=== PATIENT | male | born 1985 | race American Indian/Alaskan Native ===

== ENCOUNTER 2020-09-27 08:28 | Emergency (ER) | payer SELFPAY ==
[2020-09-27 08:47] VITALS: BP 131/81
--- NOTE | 2020-09-27 09:42 | Emergency Department Report ---
Suture/Staple Removal - HPI Chief Complaint: Laceration/Recheck/Suture Stated Complaint: LFT ARM STITCHS REMOVAL Time Seen by Provider: 09/27/20 09:35 When Sutures or [place] Placed: 8-10 Days Ago Wound Location: Left forearm ED Review of Systems ROS: Stated complaint: LFT ARM STITCHS REMOVAL Other details as noted in HPI Comment: All other systems reviewed and negative Constitutional: denies: chills, fever Eyes: denies: eye pain, eye discharge, vision change ENT: denies: ear pain, throat pain Respiratory: denies: cough, shortness of breath, wheezing Cardiovascular: denies: chest pain, palpitations Endocrine: no symptoms reported Gastrointestinal: denies: abdominal pain, nausea, diarrhea Genitourinary: denies: urgency, dysuria Musculoskeletal: denies: back pain, joint swelling, arthralgia Skin: as per HPI. denies: rash, lesions Neurological: denies: headache, weakness, paresthesias Psychiatric: denies: anxiety, depression Hematological/Lymphatic: denies: easy bleeding, easy bruising ED Past Medical Hx - Past Medical History Previous Medical History?: No - Surgical History Past Surgical History?: No Suture Removal Exam - Exam General: Vital signs noted. No distress. Alert and acting appropriately. Wound: No Pathologic Erythema, No Tenderness, No Drainage, No Pus, No Wound Dehiscence Other Systems: All other systems reviewed and are unremarkable. 2 cm laceration to the left forearm that is clean dry and intact with a running Prolene suture. ED Course Vital Signs 09/27/20 08:47 Temperature 98 F Pulse Rate 91 H Respiratory 16 Rate Blood Pressure 131/81 [Right] O2 Sat by Pulse 99 Oximetry ED Recheck MDM - Medical Decision Making Sutures removed without complication. Patient tolerated this well. Wound is clean dry and intact no signs of infection or dehiscence. Patient educated about home wound care and return precautions. Critical care attestation.: If time is entered above; I have spent that time in minutes in the direct care of this critically ill patient, excluding procedure time. ED Disposition Clinical Impression: Visit for suture removal Disposition: DC- TO HOME OR SELFCARE Is pt being admited?: No Condition: Stable Instructions: Wound Closure Removal, Care After Time of Disposition: 09:42
== END 2020-09-27 10:35 | disposition home or self-care (01) ==
LOC: ED 08:28
DX: S41.112D Laceration without foreign body of left upper arm, subsequent encounter (principal); Z88.0 Allergy status to penicillin; X58.XXXD Exposure to other specified factors, subsequent encounter

== ENCOUNTER 2021-01-29 06:05 | Emergency (ER) | payer SELFPAY ==
[2021-01-29 06:31] VITALS: BP 122/74
--- NOTE | 2021-01-29 07:42 | Emergency Department Report ---
ED Back Pain/Injury HPI - General Chief Complaint: Back Pain/Injury Stated Complaint: BACK PAIN Time Seen by Provider: 01/29/21 07:23 Source: patient Limitations: No Limitations - History of Present Illness Initial Comments: This is a 35-year-old male presents to the emergency room complaining of back pain. Patient has a history of chronic back pain associated with heavy lifting. Yesterday he states that he lift a heavy bag of potatoes and he started having back pain. The pain is 3/10. He denies any falls any trauma. He has no problems walking no problems urinating. The pain is only associated with moving twisting and turning. Patient has not taken any medication for the pain. Patient is in no acute distress MD Complaint: back pain -: Sudden Similar Symptoms Previously: Yes Place: work, other (Right back) Quality: aching Consistency: intermittent Improves With: immobilization Worsens With: movement Context: while lifting Associated Symptoms: denies other symptoms. denies: weakness, chest pain, numbness, difficulty walking, cough, incontinence - Related Data Previous Rx's Medication Instructions Recorded Last Taken Type Ibuprofen [Motrin] 800 mg PO Q8HR PRN #20 tablet 01/29/21 Unknown Rx Allergies Allergy/AdvReac Type Severity Reaction Status Date / Time Penicillins Allergy Anaphylaxis Verified 09/27/20 08:45 ED Review of Systems ROS: Stated complaint: BACK PAIN Other details as noted in HPI Comment: All other systems reviewed and negative Constitutional: no symptoms reported Respiratory: no symptoms reported Cardiovascular: denies: chest pain, palpitations, dyspnea on exertion Endocrine: no symptoms reported Gastrointestinal: denies: abdominal pain, constipation, hematemesis Genitourinary: denies: urgency, frequency, hematuria Musculoskeletal: denies: back pain Neurological: denies: headache, weakness, numbness, paresthesias ED Past Medical Hx - Past Medical History Previous Medical History?: Yes Additional medical history: Chronic Back Pain - Surgical History Past Surgical History?: No - Social History Smoking Status: Current Every Day Smoker Substance Use Type: None - Medications Home Medications: Home Medications Medication Instructions Recorded Confirmed Last Taken Type Ibuprofen [Motrin] 800 mg PO Q8HR PRN #20 tablet 01/29/21 Unknown Rx ED Physical Exam - General Limitations: No Limitations General appearance: alert, in no apparent distress - Head Head exam: Present: atraumatic, normal inspection - Eye Eye exam: Present: normal appearance - ENT ENT exam: Present: normal exam - Neck Neck exam: Present: normal inspection - Respiratory Respiratory exam: Present: normal lung sounds bilaterally - Cardiovascular Cardiovascular Exam: Present: regular rate, normal heart sounds - Rectal Rectal exam: Present: deferred - Extremities Exam Extremities exam: Present: normal inspection - Back Exam Back exam: Present: normal inspection. Absent: tenderness, paraspinal tenderness, vertebral tenderness - Neurological Exam Neurological exam: Present: alert, oriented X3 - Psychiatric Psychiatric exam: Present: normal affect - Skin Skin exam: Present: warm, dry, intact ED Course Vital Signs 01/29/21 06:28 Temperature 97.8 F Pulse Rate 87 Respiratory 18 Rate Blood Pressure 122/74 O2 Sat by Pulse 97 Oximetry ED Medical Decision Making - Medical Decision Making 35-year-old male with a history of back pain. Yesterday while lifting a heavy bag of potatoes he started having back pain. The pain is he is mild 3/10. His back pain is associated with movement only. Plan is for patient to have outpatient follow-up either with his PCP /Orthopedist and to wear back support while working or lifting heavy objects. Will prescribe NSAIDs, warm compress and a back brace while lifting. Critical Care Time: No Critical care attestation.: If time is entered above; I have spent that time in minutes in the direct care of this critically ill patient, excluding procedure time. ED Disposition Clinical Impression: Back pain Qualifiers: Back pain location: low back pain Chronicity: acute Back pain laterality: right Sciatica presence: without sciatica Qualified Code(s): M54.5 - Low back pain Disposition: TO HOME OR SELFCARE Is pt being admited?: No Does the pt Need Aspirin: No Condition: Stable Instructions: Acute Back Pain, Adult, Back Injury Prevention Additional Instructions: Follow-up with your primary care doctor. Or an orthopedic doctor of your choice or continue with physical therapy like you have done in the past. Take ibuprofen as needed for pain. Consider getting a back brace for support when you do heavy lifting Prescriptions: Ibuprofen [Motrin] 800 mg PO Q8HR PRN #20 tablet PRN Reason: pain Referrals: GILL MEDINA MD [Primary Care Provider] - 3-5 Days Forms: Work/School Release Form Time of Disposition: 07:49
== END 2021-01-29 07:56 | disposition home or self-care (01) ==
LOC: ED 06:05
DX: M54.9 Dorsalgia, unspecified (principal); F17.200 Nicotine dependence, unspecified, uncomplicated; Z79.899 Other long term (current) drug therapy; Z88.0 Allergy status to penicillin
CPT/HCPCS: 99282